=== PATIENT | male | born 2000 | race Caucasian/White ===

== ENCOUNTER 2021-06-04 20:50 | Emergency (ER) | payer SELFPAY ==
[2021-06-04 22:52] LABS: BASOPHIL 0.2 % (0-2); EOSINOPHIL 0.6 % (0-5); HCT 49.3 % (42.0-52.0); HGB 16.9 g/dl (13.2-18.0); LYMPHOCYTE 8.4 % (15-48); MCH 30.6 pg (25.0-31.0); MCHC 34.3 g/dL (32.0-36.0); MCV 89.2 fL (78.0-100.0); MONOCYTE 14.5 % (0-12); MPV 9.5 fL (6.0-9.5); NEUTROPHIL 76.1 % (41-80); NRBC 0; PLT 256 K/uL (150-400); RBC 5.53 M/uL (4.70-6.00); RDW 12.5 % (11.5-14.0); WBC 10.2 K/uL (4.0-10.5)
[2021-06-04] MEDS ORDERED: NAPROXEN500 MG PO (23:04)
[2021-06-04] MEDS ORDERED: NORCO 5-325 TA1 EACH PO (23:04)
[2021-06-04] MEDS ORDERED: ONDANSETRON ODT4 MG PO (23:05)
[2021-06-04 23:08] LABS: ALBUMIN 4.9 g/dL (3.4-5.0); BILIRUBIN - TOTAL 1.8 mg/dL (0.2-1.0); BUN/CREAT RATIO (CALC) 8.2 RATIO; CREATININE 3.89 mg/dL (0.67-1.17); GLOBULIN (CALCULATION) 3.3 g/dL; POTASSIUM 3.8 mmol/L (3.5-5.1); TOTAL PROTEIN 8.2 g/dL (6.4-8.2)
[2021-06-05 01:57] LABS: BILIRUBIN NEGATIVE (NEGATIVE); BLOOD 1+ Ery/uL (NEGATIVE); CLARITY CLEAR (CLEAR); COLOR YELLOW (YELLOW); GLUCOSE (U) NORMAL (NORMAL); LEUKOCYTES TRACE Leu/uL (NEGATIVE); NITRITE NEGATIVE (NEGATIVE); PROTEIN 2+ mg/dL (NEGATIVE); UROBILINOGEN 0.2 mg/dL (0.2-1.0)
[2021-06-05 01:58] LABS: AMPHETAMINES POSITIVE (NEGATIVE); BARBITURATES NEGATIVE (NEGATIVE); ECSTASY (MDMA) NEGATIVE (NEGATIVE); MARIJUANA (THC) POSITIVE (NEGATIVE); METHADONE NEGATIVE (NEGATIVE); OPIATES NEGATIVE (NEGATIVE); OXYCODONE NEGATIVE (NEGATIVE)
[2021-06-05 02:05] LABS: BACTERIA 2+; TRANSITIONAL EPITHELIAL CELLS RARE
[2021-06-05 02:48] LABS: BUN/CREAT RATIO (CALC) 8.6 RATIO; CREATININE 3.73 mg/dL (0.67-1.17); POTASSIUM 4.2 mmol/L (3.5-5.1)
== END 2021-06-05 03:26 | disposition home or self-care (01) ==
LOC: FER 20:50
PROVIDERS: Internal Medicine; Nurse Practitioner Family
DX: M54.50 Low back pain, unspecified (principal); N17.9 Acute kidney failure, unspecified; F15.90 Other stimulant use, unspecified, uncomplicated; F14.90 Cocaine use, unspecified, uncomplicated; Y04.0XXA Assault by unarmed brawl or fight, initial encounter
CPT/HCPCS: 36415; 72131; 80048; 80053; 80305; 81001; 82550; 83605; 83690; 85025; J1885; J2405; J7030; J7120